=== PATIENT | male | born 1965 | race Caucasian/White ===

== ENCOUNTER 2021-09-05 09:04 | Observation (INO) | payer BC ==
[~2021-09-05] VITALS: Wt 93.2 kg
[2021-09-05 10:20] LABS: BASO # 0.1 K/mm3 (0.0-0.2); BASO % 0.7 % (0.0-2.0); EOS # 0.1 K/mm3 (0.0-0.7); EOS % 1.2 % (0.0-4.0); GRAN # 4.6 K/mm3 (1.4-6.5); GRAN % 56.1 % (42.2-75.2); HEMATOCRIT 45.7 % (42.0-52.0); HEMOGLOBIN 16.7 g/dl (13.5-18.0); LYMPH # 2.7 K/mm3 (1.2-3.4); LYMPH % 32.6 % (20.0-51.0); MEAN CELL VOLUME 92 fl (80.0-100.0); MEAN CORPUSCULAR HEMOGLOBIN 34 pg (27-31); MEAN CORPUSCULAR HGB CONC 37 g/dl (33.0-37.0); MEAN PLATELET VOLUME 9.1 fl (7.4-10.4); MONO # 0.7 K/mm3 (0.1-0.6); MONO % 8.8 % (1.7-9.3); PLATELET COUNT 177 K/mm3 (130-400); RED BLOOD COUNT 4.97 M/mm3 (4.20-5.60); REDCELL DISTRIBUTION WIDTH-CV 11.6 % (11.5-14.5)
[2021-09-05 10:21] LABS: PROTHROMBIN TIME 11.2 SECONDS (9.7-12.8)
[2021-09-05 10:32] LABS: ALBUMIN 3.6 gm/dL (3.5-5.0); BILIRUBIN,TOTAL 0.7 mg/dL (0.2-1.2); CALCIUM 8.4 mg/dL (8.4-10.2); CREATININE, serum 0.85 mg/dL (0.72-1.25); POTASSIUM 4.2 mmol/L (3.5-4.5); TOTAL PROTEIN 6.7 gm/dL (6.2-8.1)
[2021-09-05 10:39] LABS: TROPONIN-I 0.015 ng/mL (0.00-0.033)
[2021-09-05 11:31] LABS: TRICYCLIC ANTIDEPRESS URINE NEGATIVE
[2021-09-05 16:04] VITALS: BP 179/80; PULSE 74; TEMP 98.7
[2021-09-05 16:11] LABS: CHOLESTEROL RISK RATIO 4.3
[2021-09-05] MEDS ORDERED: PRINIVIL20 MG PO (16:34)
[2021-09-05] MEDS ORDERED: OMEGA-3 1000 MG1 CAP PO (16:34)
--- NOTE | 2021-09-05 18:00 | NUR ---
Pt arrived to medical unit room 353 at 1530 from ER. Oriented pt to room. Med rec updated and admission assessments completed. Pt A&Ox4. Neuros WNL. Still complains of dizziness w/movement. Tolerated dinner well. Denies nausea, pain, SOA, lightheadedness. BP 179/80 upon admit, notified and lisinopril ordered and given.
[2021-09-05 18:08] VITALS: BP 187/93; PULSE 112; TEMP 97.9
[2021-09-05 20:20] VITALS: BP 140/75; PULSE 97; TEMP 98
[2021-09-05 22:16] VITALS: BP 153/84; PULSE 91; TEMP 97.7
--- NOTE | 2021-09-05 22:33 | NUR ---
ALERT AND OX4. DENIES SOA, CHEST PAIN OR DIZZY. NO SWEATING OR JITTERS PER [facility]. NEURO INTACT. POC DISCUSSED. CALL LIGHT WI REACH.
[2021-09-06] VITALS (9 sets, daily range): BP systolic 121–160; BP diastolic 69–83; PULSE 80–93; TEMP 97.4–97.7
[2021-09-06 05:59] LABS: BASO % 0.6 % (0.0-2.0); EOS # 0.1 K/mm3 (0.0-0.7); EOS % 1.2 % (0.0-4.0); GRAN # 3.4 K/mm3 (1.4-6.5); GRAN % 49.6 % (42.2-75.2); HEMATOCRIT 43.2 % (42.0-52.0); HEMOGLOBIN 15.2 g/dl (13.5-18.0); LYMPH # 2.8 K/mm3 (1.2-3.4); LYMPH % 39.8 % (20.0-51.0); MEAN CELL VOLUME 95 fl (80.0-100.0); MEAN CORPUSCULAR HEMOGLOBIN 34 pg (27-31); MEAN CORPUSCULAR HGB CONC 35 g/dl (33.0-37.0); MEAN PLATELET VOLUME 9.2 fl (7.4-10.4); MONO # 0.6 K/mm3 (0.1-0.6); MONO % 8.2 % (1.7-9.3); PLATELET COUNT 144 K/mm3 (130-400); RED BLOOD COUNT 4.54 M/mm3 (4.20-5.60); REDCELL DISTRIBUTION WIDTH-CV 11.5 % (11.5-14.5)
[2021-09-06 06:17] LABS: ALBUMIN 3.1 gm/dL (3.5-5.0); CALCIUM 8.3 mg/dL (8.4-10.2); CREATININE, serum 0.85 mg/dL (0.72-1.25); POTASSIUM 3.9 mmol/L (3.5-4.5)
--- NOTE | 2021-09-06 07:15 | NUR ---
PT OFF FLOOR TO MRI
--- NOTE | 2021-09-06 09:21 | NUR ---
First visit from the exceptional children teacher assistant. No needs right now.
--- NOTE | 2021-09-06 09:28 | NUR ---
SW met with the patient to discuss discharge plan. The patient lives in [place] with his , Karen (ph#[phone]), and his [id number], Dr. Nisreen Leung. He reports independence with ADLs and has a cane and walker available, if needed. The patient's PCP is Dr. Estefany Pat and he receives his medications from [facility]. He reports no difficulties obtaining his meds. The patient does not have a DPOA-HC, but he states that he believes he has one completed and the document is at home. He states he would have designated his . The patient plans on returning home with his family upon discharge. PT/OT have been ordered. SW to continue to monitor. *Discharge plan: home with family*
--- NOTE | 2021-09-06 22:34 | NUR ---
ALCOHOL DETOX WNL. NEURO WNL. DENIES PAIN OR WEAKNESS. PT RPORTED AAMB IN [place] EARLIER TODAY AND DID WELL. NO NEEDS AT THSI TIME.
[2021-09-07 05:05] VITALS: BP 149/85; PULSE 85; TEMP 97.5
[2021-09-07 06:12] LABS: BASO % 0.4 % (0.0-2.0); EOS # 0.1 K/mm3 (0.0-0.7); EOS % 1.4 % (0.0-4.0); GRAN # 3.5 K/mm3 (1.4-6.5); GRAN % 49.8 % (42.2-75.2); HEMATOCRIT 46.1 % (42.0-52.0); HEMOGLOBIN 16.1 g/dl (13.5-18.0); LYMPH # 2.8 K/mm3 (1.2-3.4); LYMPH % 39.5 % (20.0-51.0); MEAN CELL VOLUME 96 fl (80.0-100.0); MEAN CORPUSCULAR HEMOGLOBIN 34 pg (27-31); MEAN CORPUSCULAR HGB CONC 35 g/dl (33.0-37.0); MEAN PLATELET VOLUME 9.5 fl (7.4-10.4); MONO # 0.6 K/mm3 (0.1-0.6); MONO % 8.3 % (1.7-9.3); PLATELET COUNT 152 K/mm3 (130-400); RED BLOOD COUNT 4.78 M/mm3 (4.20-5.60); REDCELL DISTRIBUTION WIDTH-CV 11.7 % (11.5-14.5)
[2021-09-07 06:32] LABS: ALBUMIN 3.4 gm/dL (3.5-5.0); CALCIUM 8.7 mg/dL (8.4-10.2); CREATININE, serum 0.81 mg/dL (0.72-1.25); MAGNESIUM 2.2 mg/dL (1.6-2.6); PHOSPHOROUS 3.6 mg/dL (2.3-4.7); POTASSIUM 4.1 mmol/L (3.5-4.5)
[2021-09-07 07:24] VITALS: BP 149/80; PULSE 81; TEMP 97.5
--- NOTE | 2021-09-07 08:45 | NUR ---
PT UP IN ROOM WALKING AROUND. PT STATES "I AM READY TO GO HOME." PT STATES THAT HE IS STILL HAVING SOME DIZZINESS BUT "IT IS A WHOLE LOT BETTER THEN IT WAS." PT STATES NO NEEDS AT THIS TIME. PT DENIES ANY PAIN. CALL LIGHT IS WITHIN REACH.
[2021-09-07 09:55] VITALS: BP 167/81; PULSE 96; TEMP 98.1
[2021-09-07] MEDS ORDERED: ANTIVERT 12.512.5 MG PO (10:23)
[2021-09-07] MEDS ORDERED: FOLIC ACID 11 MG/TA1 PO (10:24)
[2021-09-07] MEDS ORDERED: THIAMINE 1100 MG/TAB PO (10:25)
[2021-09-07] MEDS ORDERED: MULTI VITAMINS1 TAB PO (10:25)
--- NOTE | 2021-09-07 11:00 | NUR ---
PT and OT are recommending outpatient PT. The clinical team is ready to discharge the patient today. SW met with the patient and his to discuss therapy's recommendation. The patient states that he is going to follow up with ENT and he would like to get their recommendation first, before deciding on moving forward with outpatient PT. He states that he has been to [facility] in the past. An order for outpatient PT was written and PAULINE informed the patient of that. He had no concerns for SW. No additional needs at this time.
[2021-09-07 11:44] VITALS: BP 156/76; PULSE 92; TEMP 97.6
== END 2021-09-07 12:10 | disposition home or self-care (01) ==
LOC: COL.ER 09:04 → MEDICAL 12:24
PROVIDERS: Emergency Medicine; Physician Assistant; ADMIT Internal Medicine
DX: R42 Dizziness and giddiness (principal); I65.23 Occlusion and stenosis of bilateral carotid arteries; I10 Essential (primary) hypertension; F10.10 Alcohol abuse, uncomplicated; R10.13 Epigastric pain; I77.810 Thoracic aortic ectasia; E87.2 Acidosis; Z79.899 Other long term (current) drug therapy; F17.290 Nicotine dependence, other tobacco product, uncomplicated
CPT/HCPCS: 99232-AI; A9575; G0378; J1650; J2405; J7030; Q9967

== ENCOUNTER 2022-09-03 06:47 | Day surgery (SDC) | payer BC ==
[~2022-09-03] VITALS: Ht 182.9 cm; Wt 97.8 kg
[~2022-09-03 06:47] MED LIST: ANTIVERT 12.512.5 MG PO; FOLIC ACID 11 MG/TA1 PO; MULTI VITAMINS1 TAB PO; OMEGA-3 1000 MG1 CAP PO; PRINIVIL20 MG PO; THIAMINE 1100 MG/TAB PO
[2022-09-03] MEDS ORDERED: ZESTORETIC 12.51 TA1 PO (07:30)
[2022-09-03] MEDS ORDERED: VITAMIN D362.5 MCG PO (07:31)
[2022-09-03] MEDS ORDERED: PHARMASSURE CHE30 MG PO (07:32)
[2022-09-03] MEDS ORDERED: IBU600 MG PO (07:32)
[2022-09-03 07:33] VITALS: BP 150/85; PULSE 79; TEMP 97.7
[2022-09-03 08:45] VITALS: BP 129/82; PULSE 83; TEMP 97.7
--- NOTE | 2022-09-03 08:45 | NUR ---
0845 PATIENT RETURNS TO ROOM 3 VIA CART. PATIENT IS ALERT AND ORIENTED. PATIENT AMBULATES TO RECLINER WITH THE ASSISTANCE OF 2 NURSES. RESPIRATIONS EVEN AND UNLABORED. VITAL SIGNS OBTAINED. BOBBY[facility] REQUESTED WATER, NO DIFFICULTIES SWALLOWING. 0845 DOCTOR IN TO SPEAK WITH PATIENT. 0900 DISCONTINUED IV FROM RIGHT FOREARM WITH NO DIFFICULTIES. 09 THIS NURSE REVIEWED DISCHARGE INSTRUCTIONS WITH PATIENT. PATIENT VERBALIZED UNDERSTANDING. 0915 PATIENT DISCHARGES FROM UNIT VIA WHEELCHAIR IN STABLE CONDITION.
[2022-09-03 09:00] VITALS: BP 126/91; PULSE 86
[2022-09-03 09:10] VITALS: BP 147/89; PULSE 77
== END 2022-09-03 09:15 | disposition home or self-care (01) ==
LOC: SDCO 06:47
DX: Z12.11 Encounter for screening for malignant neoplasm of colon (principal); K64.0 First degree hemorrhoids; Z86.010 Personal history of colon polyps
CPT/HCPCS: J2704

== ENCOUNTER → 2023-07-22 | Outpatient (CLI) | payer OTHER ==
[~2023-07-22] MED LIST changes: +IBU600 MG PO; +PHARMASSURE CHE30 MG PO; +VITAMIN D362.5 MCG PO; +ZESTORETIC 12.51 TA1 PO
== END ==
LOC: COL.RAD 10:43
DX: M51.36 Other intervertebral disc degeneration, lumbar region (principal)